=== PATIENT | female | born 1990 ===

== ENCOUNTER 2019-10-15 06:11 | Day surgery (SDC) | payer OTHER | END 2019-10-15 12:05 | disposition home or self-care (01) | LOC: OR 06:11 | DX: N93.8 Other specified abnormal uterine and vaginal bleeding (principal); N71.9 Inflammatory disease of uterus, unspecified; N87.9 Dysplasia of cervix uteri, unspecified; Z79.899 Other long term (current) drug therapy; Z72.89 Other problems related to lifestyle; Z98.890 Other specified postprocedural states | CPT/HCPCS: 58120; 81025; 88305; J1100; J1885; J2250; J2405; J2704; J3010; J7120 ==